=== PATIENT | male | born 1960 | race Caucasian/White ===

== ENCOUNTER 2016-12-14 10:14 | Emergency (ER) | payer OTHER ==
[~2016-12-14] VITALS: Ht 172.7 cm; Wt 85.0 kg
[2016-12-14] MEDS ORDERED: KETOROLAC 60MG/2ML VIAL IM ONE (11:15)
[2016-12-14 12:36] VITALS: BP 127/81
== END 2016-12-14 12:36 | disposition home or self-care (01) ==
LOC: ER 10:27
DX: S40.011D Contusion of right shoulder, subsequent encounter (principal); R03.0 Elevated blood-pressure reading, without diagnosis of hypertension; X58.XXXD Exposure to other specified factors, subsequent encounter
CPT/HCPCS: 29105; 73030; 96372; 99284; J1885; Z7610; L3670

== ENCOUNTER 2024-08-17 12:18 | Emergency (ER) | payer MEDICAID ==
[~2024-08-17] VITALS: Ht 172.7 cm; Wt 95.3 kg
[2024-08-17 12:32] VITALS: BP 130/83; PULSE 97; RESP 16; TEMP 98; O2SAT 100
[2024-08-22] MEDS ORDERED: LOSA100T33 PO (05:37)
[2024-08-22] MEDS ORDERED: FINE10TA PO (05:37)
[2024-08-22] MEDS ORDERED: ASPI-1406 PO (05:37)
[2024-08-22] MEDS ORDERED: EMPA25TA PO (05:37)
[2024-08-22] MEDS ORDERED: D-ME473S50 PO (05:37)
[2024-08-22] MEDS ORDERED: FURO20TA4 PO (05:37)
[2024-08-22] MEDS ORDERED: PANT40TA51 PO (05:37)
[2024-08-22] MEDS ORDERED: METO25TA6 PO (05:37)
[2024-08-22] MEDS ORDERED: GLYB-168 PO (05:37)
[2024-08-22] MEDS ORDERED: ATOR-2 PO (05:37)
[2024-08-22] MEDS ORDERED: BENZ200C52 PO (05:37)
== END 2024-08-17 15:25 | disposition left against medical advice (07) ==
LOC: ER 12:18
DX: R68.89 Other general symptoms and signs (principal); Z53.21 Procedure and treatment not carried out due to patient leaving prior to being seen by health care provider